=== PATIENT | male | born 1995 | race Caucasian/White ===

== ENCOUNTER 2016-08-26 15:30 | Emergency (ER) | payer OTHER ==
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
== END 2016-08-26 20:49 | disposition home or self-care (01) ==
LOC: CED 15:30
DX: S09.90XA Unspecified injury of head, initial encounter (principal); S02.31XA Fracture of orbital floor, right side, initial encounter for closed fracture; S05.31XA Ocular laceration without prolapse or loss of intraocular tissue, right eye, initial encounter; J45.909 Unspecified asthma, uncomplicated; F17.210 Nicotine dependence, cigarettes, uncomplicated; Y09 Assault by unspecified means
CPT/HCPCS: 36415; 70450; 70486; 72125; 96361; 96374; 96375; 99284; J1885; J2270; J2405